=== PATIENT | female | born 1970 | race Caucasian/White ===

== ENCOUNTER 2017-04-24 23:15 | Emergency (ER) | payer MEDICAID, MEDICARE ==
[~2017-04-24] VITALS: Ht 162.6 cm; Wt 85.1 kg
[~2017-04-24 23:15] MED LIST: ALPR-475 PO; ASPI-496 PO; BENZ2AMP4 PO; CITA40TA12 PO; CITA40TA5 PO; CLON-364 PO; DILANTIN; DIPH25CA61 PO; ERYT250T14 PO; HYDR200T PO; LACT1CAP24; LAMO200T PO; LAMO50TA3 PO; LEVE250T28 PO; LEVE500T53 PO; LEVO150C2 PO; MAGN400T26 PO; MAGN500C9; MORP30TA3 PO; NORT25CA PO; ONDA4TAB7 PO; OXYC-302 PO; OXYC10TA47 PO; OXYC5CAP2 PO; PANT40TA5 PO; SUCR1TAB33 PO; TRAZ50TA18; TRAZ50TA18 PO
[2017-04-24 23:23] VITALS: BP 175/92
[2017-04-24] MEDS ORDERED: DEXAMETHASONE 4 MG TABLET ONE ×2 (23:41→23:47)
[2017-04-25] MEDS ORDERED: DEXAMETHASONE 4 MG TABLET PO ONE
== END 2017-04-25 00:31 | disposition home or self-care (01) ==
LOC: ED 23:40
DX: J02.0 Streptococcal pharyngitis (principal); H92.03 Otalgia, bilateral; K21.9 Gastro-esophageal reflux disease without esophagitis; F32.9 Major depressive disorder, single episode, unspecified; E03.9 Hypothyroidism, unspecified; Z90.49 Acquired absence of other specified parts of digestive tract
CPT/HCPCS: 99283